=== PATIENT | female | born 1995 | race Caucasian/White ===

== ENCOUNTER 2021-11-24 23:29 | Inpatient (IN) ==
[~2021-11-24 23:29] MED LIST: *HR* Nalbuphine 10 MG/ML AMPUL IV PRN; Famotidine 20 MG/2 ML VIAL IVP PRN; Metoclopramide 10 MG/2 ML VIAL IVP PRN; Naloxone 0.4 MG/ML INJ IVP PRN; Ondansetron 4 MG/2 ML VIAL IVP PRN
[2021-11-24] MEDS ORDERED: Ringers Solution, Lactated 1,000 ML IVC SCH (23:30)
[2021-11-25 00:14] LABS: Basophils % 0.3 %; Eosinophils # 0.1 K/mcL (0.0-0.6); Eosinophils % 0.3 %; Immature Granulocytes % 1.5 % (0-4); Lymphocytes # 1.5 K/mcL (0.6-4.6); Lymphocytes % 10.3 %; Mean Corpuscular HGB Conc 33.3 g/dL (31.6-35.5); Mean Corpuscular Hemoglobin 29.6 pg (28.0-33.3); Mean Corpuscular Volume 88.7 fL (83.0-100.0); Mean Platelet Volume 12.8 fL (9.4-12.4); Monocytes % 6.8 %; Neutrophils # 11.8 K/mcL (1.6-8.9); Platelet Count 127 K/mcL (140-400); Red Blood Count 4.06 M/mcL (3.82-4.97); Red Cell Distribution Width 13.3 % (11.5-14.5); Segmented Neutrophils % 80.8 %; White Blood Count 14.6 K/mcL (4.3-11.1)
[2021-11-25] MEDS ORDERED: *HR* FentaNYL (PF) 100 MCG/2 ML VIAL EP ONE (00:25)
[2021-11-25] MEDS ORDERED: EPHEDrine 50 MG/ML VIAL IVP PRN (00:25)
[2021-11-25] MEDS ORDERED: Ropivacaine/PF 0.2% 20 ML VIAL EP ONE (00:25)
[2021-11-25] MEDS ORDERED: *HR* FentaNYL (PF) 100 MCG/2 ML VIAL ONE (00:28)
[2021-11-25] MEDS ORDERED: Ropivacaine/PF 0.2% 20 ML VIAL ONE (00:29)
[2021-11-25] MEDS ORDERED: Epidural Premix (fent/bupiv) 110 ML EP SCH (00:30)
[2021-11-25] MEDS ORDERED: Epidural Premix (fent/bupiv) 110 ML EP ONE (00:30)
[2021-11-25] MEDS ORDERED: Oxytocin 30 UNIT/503 ML BAG IVC ONE (03:12)
[2021-11-25 03:53] LABS: Amphetamine Screen,Urine Negative ng/mL (Cutoff=1000); Barbiturate Screen,Urine Negative ng/mL (Cutoff=200); Benzodiazepines Screen,Urine Negative ng/mL (Cutoff=200); Cannabinoid Screen,Urine Negative ng/mL (Cutoff = 50); Cocaine Screen,Urine Negative ng/mL (Cutoff= 300); Opiate Screen,Urine Negative ng/mL (Cutoff=300); Phencyclidine Screen,Urine Negative ng/mL (Cutoff=25)
[2021-11-25] MEDS ORDERED: Measles/Mumps/Rubella Vacc 0.5 ML VIAL SQ PRN (06:54)
[2021-11-25] MEDS ORDERED: Benzocaine/Menthol 56 GM AEROSOL SPRAY TP PRN (06:54)
[2021-11-25] MEDS ORDERED: OXYTOCIN/RINGERS LACTATE 10 UNIT/166.6 ML BAG IVC ONE (06:54)
[2021-11-25] MEDS ORDERED: Rho Immune Globulin 1,500 UNIT SYRINGE IM PRN (06:54)
[2021-11-25] MEDS ORDERED: Ondansetron ODT 4 MG TAB.RAPDIS SL PRN (06:54)
[2021-11-25] MEDS: Prenatal Vit/FA 1 EACH TABLET PO SCH (08:59)
[2021-11-25] MEDS ORDERED: NON-FORMULARY MEDICATION 1 EACH EACH (Prenatal Vits96/Iron Fum/Folic [Prenatal Tablet] 1 E PO SCH (09:00)
[2021-11-25] MEDS: Ibuprofen 600 MG TABLET PO SCH ×3 (09:02→23:10)
[2021-11-25] MEDS: Acetaminophen 325 MG TABLET PO SCH (20:51)
[2021-11-25] MEDS: Lanolin 7 G OINT...G. TP PRN (21:00)
[2021-11-26 00:57] VITALS: PULSE 79
[2021-11-26] MEDS: Ibuprofen 600 MG TABLET PO SCH (05:03)
[2021-11-26] MEDS: Acetaminophen 325 MG TABLET PO SCH (05:03)
[2021-11-26 05:48] LABS: Monocytes % 6.5 %
[2021-11-26 05:50] LABS: Basophils % 0.2 %; Eosinophils # 0.1 K/mcL (0.0-0.6); Eosinophils % 0.7 %; Hematocrit 34.5 % (35.3-44.9); Hemoglobin 11.5 g/dL (11.5-15.4); Immature Granulocytes % 1.1 % (0-4); Immature Platelets 15.5 % (1.1-6.1); Lymphocytes # 1.8 K/mcL (0.6-4.6); Lymphocytes % 12.7 %; Mean Corpuscular HGB Conc 33.3 g/dL (31.6-35.5); Mean Corpuscular Hemoglobin 30.1 pg (28.0-33.3); Mean Corpuscular Volume 90.3 fL (83.0-100.0); Mean Platelet Volume 12.9 fL (9.4-12.4); Monocytes # 0.9 K/mcL (0.0-1.3); Neutrophils # 10.9 K/mcL (1.6-8.9); Platelet Count 146 K/mcL (140-400); Red Blood Count 3.82 M/mcL (3.82-4.97); Red Cell Distribution Width 13.8 % (11.5-14.5); Segmented Neutrophils % 78.8 %; White Blood Count 13.8 K/mcL (4.3-11.1)
[2021-11-26 07:47] VITALS: BP 111/66; TEMP 98.5; O2SAT 98
[2021-11-26] MEDS: Prenatal Vit/FA 1 EACH TABLET PO SCH (08:29)
[2021-11-26] MEDS: Lanolin 7 G OINT...G. TP PRN (08:29)
== END 2021-11-26 11:09 | disposition home or self-care (01) | DRG 807 ==
LOC: 1NENULAB → 1NENUOBS 11-25 07:04
PROVIDERS: ADMIT Student in an Organized Health Care Education/Training Program; ATTEND Student in an Organized Health Care Education/Training Program